=== PATIENT | male | born 1960 | race Caucasian/White ===

== ENCOUNTER → 2016-05-16 | Outpatient (CLI) | payer OTHER, SELFPAY ==
--- NOTE | 2016-05-18 12:26 | RAD ---
EXAM DESCRIPTION: Right foot series. CLINICAL HISTORY: Right foot pain. COMPARISON: None. TECHNIQUE: Three views were submitted for evaluation. FINDINGS: No fracture, dislocation, or suspicious radiopaque foreign body is seen. Soft tissues are unremarkable. IMPRESSION: No acute findings on today's study. Electronically signed by: Moi Mendes MD 05/18/2016 12:23
== END ==
LOC: YCFC.O 14:38
PROVIDERS: ATTEND Nurse Practitioner Family
DX: M79.671 Pain in right foot (principal); M20.21 Hallux rigidus, right foot; R60.0 Localized edema

== ENCOUNTER → 2016-06-20 | Outpatient (CLI) | payer OTHER, SELFPAY ==
--- NOTE | 2016-06-21 15:15 | MRI ---
MRI right foot without contrast INDICATION: Dorsal foot pain base of middle three toes swelling no specific injury TECHNIQUE: Noncontrast MR imaging right foot FINDINGS: There is a bipartite medial/tibial hallux sesamoid. No erosions of the MTP joints. No erosions or end-stage arthrosis of the TMT compartments. No widening of the Lisfranc interval. No definite ligament disruption. Minimal cystic change in the lateral hallux sesamoid indicating mild degenerative change. Mild first MTP joint osteophyte formation indicating osteoarthrosis. Minimal bunion formation. No evidence of Freiberg's infraction. No stress fracture identified. 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
== END | disposition home or self-care (01) ==
LOC: MRI 07:36
PROVIDERS: ATTEND Nurse Practitioner Family
DX: M79.671 Pain in right foot (principal)